=== PATIENT | female | born 1990 | race Asian ===

== ENCOUNTER 2025-03-27 17:44 | Emergency (ER) | payer OTHER | END 2025-03-27 18:17 | disposition home or self-care (01) | LOC: DL.ED 17:44 | DX: M62.830 Muscle spasm of back (principal) | CPT/HCPCS: 99282; 99283 ==

== ENCOUNTER 2025-05-01 19:15 | Emergency (ER) | payer OTHER | END 2025-05-01 20:17 | disposition home or self-care (01) | LOC: DL.ED 19:15 | DX: S76.311A Strain of muscle, fascia and tendon of the posterior muscle group at thigh level, right thigh, initial encounter (principal); M76.31 Iliotibial band syndrome, right leg; X58.XXXA Exposure to other specified factors, initial encounter | CPT/HCPCS: 99283; A9270 ==

== ENCOUNTER 2025-05-30 10:26 | Emergency (ER) | payer OTHER ==
[2025-05-30] MEDS: Sodium Chloride 0.9% 10 ML Syringe FLUSH PRN (11:00)
[2025-05-30 11:07] LABS: BASOPHILS PERCENT AUTO 0.3 % (0.0-1.0); EOSINOPHILS PERCENT AUTO 0.5 % (1.0-3.0); LYMPHOCYTES PERCENT AUTO 24.6 % (20.5-50.1); MONOCYTES PERCENT AUTO 7.4 % (2-8); NEUTROPHILS PERCENT AUTO 67.2 % (42.2-75.2); PLATELET COUNT,PLT 220 10^3/uL (150-450); RED BLOOD CELL COUNT 3.95 10^6/uL (4.2-5.4); WHITE BLOOD CELL COUNT,WBC 7.9 10^3/uL (5.0-10.0)
[2025-05-30] MEDS: Lactated Ringers 1,000 ML IV SCH (11:15)
[2025-05-30 11:35] LABS: A/G RATIO 0.9; ALANINE AMINOTRANSFERASE,ALT 36 U/L (14-59); ASPARTATE AMNIOTRANSFERASE,AST 58 U/L (15-37); BILIRUBIN TOTAL 0.3 mg/dL (0.2-1.0); BLOOD UREA NITROGEN,BUN 13 mg/dL (7-18); CARBON DIOXIDE,CO2 26 mmol/L (21-32); CHLORIDE,CL 102 mmol/L (98-107); CREATINE KINASE,CK 1752 U/L (16-191); CREATININE 0.93 mg/dL (0.55-1.02); ESTIMATED GFR 82 mL/min (>=60); GLUCOSE RANDOM 97 mg/dL (70-99); POTASSIUM,K 3.4 mmol/L (3.5-5.1); PROTEIN TOTAL,TP 7.4 g/dL (6.4-8.2); SODIUM,NA 137 mmol/L (136-145)
[2025-05-30] MEDS: Acetaminophen/HYDROcodone 325-5 MG Tab PO ONE (11:41)
[2025-05-30 11:52] LABS: APPEARANCE,URINE CLEAR (CLEAR); GLUCOSE,URINE NEGATIVE (NEGATIVE); OCCULT BLOOD,URINE SMALL (NEGATIVE)
[2025-05-30] MEDS: Ketorolac 30 MG/ML SDV IVPUSH ONE (12:04)
[2025-05-30 12:05] LABS: EPITHELIAL CELLS,URINE FEW /HPF (NOT SEEN)
[2025-05-30] MEDS ORDERED: Lactated Ringers 1,000 ML IV SCH (12:15)
== END 2025-05-30 12:35 | disposition home or self-care (01) ==
LOC: DL.ED 10:26
DX: M62.82 Rhabdomyolysis (principal)
CPT/HCPCS: 36415; 80053; 81001; 81025; 82550; 83735; 85025; 96361; 96374; 99283; A9270; J1885; J7120

== ENCOUNTER 2025-08-07 15:14 | Emergency (ER) | payer OTHER ==
[2025-08-07 16:41] LABS: BLOOD UREA NITROGEN,BUN 16.0 mg/dL (7-18); CARBON DIOXIDE,CO2 28.0 mmol/L (21-32); CHLORIDE,CL 106.0 mmol/L (98-107); CREATININE 0.92 mg/dL (0.55-1.02); EST CRCL DRUG DOSING (CG) 64.4 mL/min; GLUCOSE RANDOM 92.0 mg/dL (70-99); POTASSIUM,K 4.1 mmol/L (3.5-5.1); SODIUM,NA 141.0 mmol/L (136-145)
[2025-08-07 16:42] LABS: CREATINE KINASE,CK 2435.0 U/L (16-191); ESTIMATED GFR 83.0 mL/min (>=60)
== END 2025-08-07 17:00 | disposition home or self-care (01) ==
LOC: DL.ED 15:14
DX: M62.82 Rhabdomyolysis (principal)
CPT/HCPCS: 36415; 80048; 82550; 99284; A9270